=== PATIENT | female | born 1995 | race Two or more races ===

== ENCOUNTER 2024-08-22 16:05 | Outpatient (CLI) | payer MEDICAID, SELFPAY ==
[2024-08-22] VITALS (8 sets, daily range): BP systolic 116; BP diastolic 76; PULSE 69–110; RESP 18; TEMP 37.2; O2SAT 96–100; BMI 29.8
--- NOTE | 2024-08-22 16:23 | XR_ITS ---
Examination: Complete OB ultrasound greater than 14 weeks Date and time of exam: August 22, 2024 1641 hours INDICATIONS: Diagnosis macrosomia Findings: Viable intrauterine single fetus with single amniotic sac presentation cephalic Cardiac motion 127 BPM Placenta anterior grade 2 Umbilical cord insertion seen Amniotic fluid index 7.5 cm spine anterior maternal left Cervix 3.8 cm Nuchal cord Ovaries obscured by bowel gas. Composite estimated gestational age based on BPD, head circumference, abdominal circumference, femur length is 39 weeks 0 days Estimated weight 3934 g. Survey of intracranial anatomy, spinal anatomy, abdominal anatomy, four-chamber heart performed with no abnormalities identified. IMPRESSION: Viable intrauterine gestation cephalic presentation Estimated gestational age 39 weeks 0 days Estimated weight 3934 g Nuchal cord with flow.
== END 2024-08-22 17:58 | disposition home or self-care (01) ==
LOC: S4S1 16:06 → S4SX 17:48
PROVIDERS: Referring Provider Advanced Practice Midwife; Visit Provider Advanced Practice Midwife
DX: Z34.83 Encounter for supervision of other normal pregnancy, third trimester (principal); Z36.89 Encounter for other specified antenatal screening; Z3A.38 38 weeks gestation of pregnancy
CPT/HCPCS: 59025; 76805

== ENCOUNTER 2024-09-02 03:14 | Inpatient (IN) | payer MEDICAID, SELFPAY ==
[2024-09-02] VITALS (116 sets, daily range): BP systolic 73–179; BP diastolic 44–83; PULSE 55–176; RESP 17–98; TEMP 36.5–37.2; O2SAT 85–100; BMI 30.2
[2024-09-02 03:53] LABS: ROM Kit Lot # 57805053; ROM Swab Mixed By: CARMP2; Rupture of Fetal Membranes Negative (Negative); Swb Mxed in Solvent 1 min? Yes
--- NOTE | 2024-09-02 04:58 | XR_ITS ---
Examination: Complete OB ultrasound greater than 14 weeks Date and time of exam: September 02, 2024 at 0526 hrs. Indications: Pelvic contractions beginning 3 days ago Findings: Viable intrauterine single fetus with single amniotic sac presentation cephalic Cardiac motion 116 bpm Placenta fundal anterior grade 3 Umbilical cord insertion seen Amniotic fluid index 7.6 cm Cervix 3.9 cm Ovaries obscured by bowel gas. Composite estimated gestational age based on BPD, head circumference, abdominal circumference, femur length is 36 weeks 6 days Estimated weight 3472.1 g. Survey of intracranial anatomy, spinal anatomy, abdominal anatomy, four-chamber heart performed with no abnormalities identified. Impression: Viable intrauterine gestation cephalic presentation Estimated gestational age 36 weeks 6 days Estimated weight 3472.1 g.
[2024-09-02] MEDS: RINGERS LACTATED 1000 ML 1,000 ML 125 ML IV ×3 (08:00→15:15)
[2024-09-02 08:29] LABS: Basophils % (Auto) 0 % (0-2.5); Eosinophils # (Auto) 0.1 Thou/mm3 (0.0-0.5); Eosinophils % (Auto) 1 % (0-10); Hematocrit 34.6 % (36.0-46.0); Hemoglobin 11.5 g/dL (12.0-16.0); Immature Granulocytes % (Auto) 0 % (0-0); Immature Granulocytes Auto 0.03 Thou/mm3 (0.00-0.00); Lymphocytes # (Auto) 2.2 Thou/mm3 (1.0-4.8); Lymphocytes % (Auto) 26 % (10-50); Mean Corpuscular HGB Conc 33.2 g/dl (31.0-37.0); Mean Corpuscular Hemoglobin 29.5 pg (25.0-35.0); Mean Corpuscular Volume 89 fL (80-100); Monocytes # (Auto) 0.5 Thou/mm3 (0.0-0.8); Monocytes % (Auto) 6 % (0-12); Neutrophils # (Auto) 5.6 Thou/mm3 (1.8-7.7); Neutrophils % (Auto) 67 % (37-80); Nucleated Red Blood Cell % 0 /100 WBC (0); Platelet Count 190 Thou/mm3 (140-440); RDW Standard Deviation 48.6 fL (36.4-46.3); White Blood Count 8.4 Thou/mm3 (3.6-11.0)
[2024-09-02] MEDS: Ampicillin Inj 2,000 MG in SODIUM CHLORIDE 0.9% (P) 100 ML 200 MG IV (08:33)
[2024-09-02] MEDS: MEPERIDINE INJ 50 MG/ML VIAL 75 MG IM (08:36)
[2024-09-02] MEDS: PROMETHAZINE INJ 25 MG/ML VIAL 12.5 MG IM (08:37)
[2024-09-02 09:14] LABS: Syphilis Nonreactive (Nonreactive)
[2024-09-02] MEDS: Ampicillin Inj 1,000 MG in SODIUM CHLORIDE 0.9% (P) 50 ML 50 MG IV ×2 (12:28→16:38)
--- NOTE | 2024-09-02 12:50 | ESHP_ITS ---
Documentation for date of: 09/02/24 OB Labor/Induct. HPI History of Present Illness Chief complaint: labor : 2 Para: 1 Term pregnancies: 1 pregnancies: 0 Living children: 1 History of Abortions: Spontaneous and Elective: 0 History of Vaginal deliveries: 1 History of sections: No History of : No Date of last menstrual period: 11/27/23 HUSAM: 09/02/24 Gestational Age (weeks): 40 Gestational Age (days): 0 Gestational age based on last menstrual period: 40 History of present illness: 29-year-old 2 para 1 admit to labor and delivery with complaints of contractions since 3 in the morning. Patient has been followed at [facility] care. First visit 7 weeks. Last. Was November 27, 2023. This gives due date MarchSeptember 02, 2024. Patient first ultrasound was at 14 weeks in March. She has had several anatomy scans for growth. The baby was growing large for gestational age. Denies social habits. Denies surgery. Denies chronic illness. Patient is A+, antibody screen negative, RPR nonreactive, rubella immune, hepatitis B negative, hepatitis C negative, HIV negative, GC and Chlamydia were negative. GBS positive. Patient had a normal 1 hour. Negative NIPT and carrier screen History of Present Dating criteria: LMP confirmed by 1st trimester US Adequate Care: Yes Ultrasounds: normal 1st trimester US and normal mid trimester US Obstetrical complications: none Medical complications: none Labs Labs: Positive: Group Beta Strep and Negative: Hepatitis B, HIV, Chlamydia and Gonorrhea Review of Systems Review of Systems Systems Reviewed: All systems reviewed, normal except as documented Past Medical History Surgical History SURGICAL: Negative Section Meds Home Medications and Allergies Home Medications ?Medication ?Instructions ?Recorded ?Confirmed ?Type vitamins-iron fumarate 27 1 tab PO QDAY 08/28/19 09/02/24 History mg iron-folic acid 0.8 mg tablet ( Vitamin) ferrous sulfate 325 mg (65 mg 325 mg PO DAILY 05/28/24 09/02/24 History iron) capsule,extended release Allergies Allergy/AdvReac Type Severity Reaction Status Date / Time No Known Allergies Allergy Verified 09/02/24 03:20 OB Exam Physical Exam Vital signs: Temp Pulse Resp BP Pulse Ox 98.6 F 82 18 115/77 98 09/02/24 12:00 09/02/24 12:15 09/02/24 12:00 09/02/24 12:15 09/02/24 06:39 Narrative: Normal heart rate and rhythm. Lungs clear no wheezes. Gravid abdomen. Gynecoid pelvis. Estimated weight 8 pounds 2. Vaginal exam on admission was 60%, 2, -2. Mid. Vertex. Bag water intact. Contractions were about every 3 minutes and moderate Detailed Labor and Delivery Exam Dilation (cm): 2 Effacement (%): 70 Cervix position: mid station: -2 Consistency: soft Presentation: Vertex Cervical ripeness score: 7 Membranes: intact Baseline heart rate: 115 monitor accelerations: 15x15 monitor decelerations: None control and recovery combat rescue variability: Moderate (11-25) Contraction frequency (min): 3 Contraction duration (sec): 15 Tachysystole: No Contraction intensity: Moderate OB Results Labs 09/02/24 08:10 Labs: Short CBC 09/02/24 Range/Units 08:10 WBC 8.4 (3.6-11.0) Thou/mm3 Hgb 11.5 L (12.0-16.0) g/dL Hct 34.6 L (36.0-46.0) % Plt Count 190 (140-440) Thou/mm3 Impressions Impression: labor OB Assessment & Plan Assessment and Plan (1) Normal labor and delivery: Status: Acute Additional Plan Induction method: none Plan: anticipate NVD, GBS prophylaxis tx and consult MD lobo
[2024-09-02] MEDS: MINERAL OIL 30 ML UDC TOP (18:40)
[2024-09-02] MEDS: OXYTOCIN INJ 10 UNIT/ML VIAL IM (18:50)
[2024-09-02] MEDS: OXYTOCIN in NS 20 units 20 UNIT/1,000 ML BAG 125 UNIT IV (18:57)
[2024-09-02] MEDS: MISOPROSTOL 200 mCg TABLET 800 MCG PR (19:01)
[2024-09-02] MEDS: TRANEXAMIC ACID 1,000 MG IVPB 1,000 MG/100 ML BAG 200 MG IV ×2 (19:17→19:49)
--- NOTE | 2024-09-02 19:48 | PD.LDDELS ---
Data (Mojica) Data Hx Section: No : 2 Para: 1 Term: 1 : 0 : 0 Delivery Data (Mojica) Labor Data Stimulated/Augmented: Yes Induction: No Method: AROM ROM Date: 09/02/24 ROM Time: 11:59 Rupture Type: AROM Amniotic Fluid: Clear Delivery Data EDC: 09/02/24 EDC calculated by:: LMP/early US confirmation Labor Onset Stage 1 Date: 09/01/24 Labor Onset Stage 1 Time: 13:45 Labor Onset Stage 2 Date: 09/02/24 Labor Onset Stage 2 Time: 18:31 Delivery Date: 09/02/24 Delivery Time: 18:48 Gestational age (weeks): 40 Gestational age (days): 0 Placenta Delivery Date: 09/02/24 Placenta Delivery Time: 18:53 Delivered by: Maritza Arambula Delivery nurse: Jenn Max Other staff at delivery: 2nd Nurse Other staff at delivery: 2nd Nurse Other staff at delivery: Soniya Mcintyre Other staff at delivery: Barbie Schultz Delivery Method Delivery: Vaginal Delivery Type: Spontaneous Presentation: Compound Position: OA Anesthesia Type Primary Anesthesia: Epidural Delivery Room Medications Intrapartum Medications: Antibiotics and Narcotics Other Intrapartum Medications: No Post Delivery Medications: Antibiotics, Tocolytics and Cytotec Post Delivery Medications N/A: No Placenta Placenta Delivery: Spontaneous (placenta inspected, intact) Placenta Cultures Obtained: No Placenta Sent for Examination: No Cord Sample: Cord Blood Obtained Episiotomy Episiotomy: None Lacerations #1: Perineal: 1st degree (small 1st, bilateral laceration) Perineal repair Sutures used for repair: 3.0 Vicryl EBL Estimated blood loss (ml): 400 Umbilical Cord Umbilical Vessels: 3 Nuchal Cord: None Body Cord: None Additional Procedures posterior arm, compound presentation Data (Mojica) [place] Data Infant Gender: Female Weight Grams: 3390 1 Minute Total: 8 5 Minute Total: 9
[2024-09-02] MEDS: IBUPROFEN TAB 400 MG TABLET 800 MG PO (20:14)
[2024-09-03] VITALS (10 sets, daily range): BP systolic 92–111; BP diastolic 62–73; PULSE 73–97; RESP 16–18; TEMP 36.5–36.9; O2SAT 97–100
[2024-09-03 05:38] LABS: Basophils % (Auto) 0 % (0-2.5); Eosinophils # (Auto) 0.1 Thou/mm3 (0.0-0.5); Eosinophils % (Auto) 1 % (0-10); Hematocrit 25.5 % (36.0-46.0); Immature Granulocytes % (Auto) 1 % (0-0); Immature Granulocytes Auto 0.06 Thou/mm3 (0.00-0.00); Lymphocytes # (Auto) 1.8 Thou/mm3 (1.0-4.8); Lymphocytes % (Auto) 16 % (10-50); Mean Corpuscular HGB Conc 32.9 g/dl (31.0-37.0); Mean Corpuscular Hemoglobin 29.6 pg (25.0-35.0); Mean Corpuscular Volume 90 fL (80-100); Monocytes # (Auto) 0.7 Thou/mm3 (0.0-0.8); Monocytes % (Auto) 7 % (0-12); Neutrophils # (Auto) 8.6 Thou/mm3 (1.8-7.7); Neutrophils % (Auto) 77 % (37-80); Nucleated Red Blood Cell % 0 /100 WBC (0); Platelet Count 152 Thou/mm3 (140-440); RDW Standard Deviation 50.4 fL (36.4-46.3); Red Blood Count 2.84 Miln/mm3 (4.00-5.20); White Blood Count 11.2 Thou/mm3 (3.6-11.0)
[2024-09-03 05:40] LABS: Hemoglobin 8.4 g/dL (12.0-16.0)
--- NOTE | 2024-09-03 07:28 | PD.LDPPPRG ---
Subjective Subjective Interval history: No complaints of pain. No dizziness. Bonding and breast-feeding Exam Vital Signs Temp Pulse Resp BP Pulse Ox O2 Del Method O2 Flow Rate 98.2 F 97 16 92/63 100 Room Air 10 09/03/24 05:09 09/03/24 06:37 09/03/24 05:09 09/03/24 06:37 09/03/24 06:37 09/03/24 06:37 09/02/24 19:48 Narrative Exam Vital signs stable afebrile. Breasts are soft. Fundus firm below the umbilicus. Perineum intact no swelling. 2+ DTRs. Negative Homans' sign. Uterus well involuted. Objective Labs 09/03/24 04:40 Labs: Laboratory Results - last 24 hr 09/02/24 09/03/24 08:10 04:40 WBC 8.4 11.2 H RBC 3.90 L 2.84 L Hgb 11.5 L 8.4 L D Hct 34.6 L 25.5 L MCV 89 90 MCH 29.5 29.6 MCHC 33.2 32.9 RDW Std Deviation 48.6 H 50.4 H Plt Count 190 152 D Neut % (Auto) 67 77 Lymph % (Auto) 26 16 [place] % (Auto) 6 7 Eos % (Auto) 1 1 Baso % (Auto) 0 0 Neut # (Auto) 5.6 8.6 H Lymph # (Auto) 2.2 1.8 [place] # (Auto) 0.5 0.7 Eos # (Auto) 0.1 0.1 Baso # (Auto) 0.0 0.0 Immature Gran # (Auto) 0.03 H 0.06 H Absolute Nucleated RBC 0.00 0.00 Immature Gran % 0 1 H Nucleated RBC % 0 0 Syphilis Serology Nonreactive Blood Type A Positive Antibody Screen NEGATIVE Blood Bank Wristband ID Yes Assessment & Plan Problem List (1) Normal labor and delivery: Status: Acute Assessment Comment Assessment comment: 24 hr pp Plan Comment Plan Comment: Discharge home with baby. Continue vitamins and iron. Tylenol ibuprofen for pain. Discussed comfort measures for laceration. No sex. Discussed danger signs and symptoms. Discussed ER precautions and parameters. And discussed signs and symptoms of infection. Return in 3 weeks visit Time Spent With Patient Time: Total time spent is greater than 50% in coordination of care (as documented) at patient's floor/unit and/or counseling patient:
--- NOTE | 2024-09-03 07:30 | ESDS_ITS ---
DS: Providers Provider Date of admission: 09/02/24 15:25 Primary care physician: Scot Tyson MD Admitting Provider: Delroy Stovall MD Attending Provider on Admission: Maritza Arambula CNM Consults: 09/02/24 20:19 Referral Routine Comment: Attending Provider on DC: Maritza Arambula CNM Discharging Provider: Maritza Arambula CNM DS: Diagnosis Problem List Completed Was Problem List Reviewed/Reconciled?: Yes Summary/Hosp Course Brief History: 29-year-old 2 para 1 admit to labor and delivery with complaints of contractions since 3 in the morning. Patient has been followed at [facility] care. First visit 7 weeks. Last. Was November 27, 2023. This gives due date MarchSeptember 02, 2024. Patient first ultrasound was at 14 weeks in March. She has had several anatomy scans for growth. The baby was growing large for gestational age. Denies social habits. Denies surgery. Denies chronic illness. Patient is A+, antibody screen negative, RPR nonreactive, rubella immune, hepatitis B negative, hepatitis C negative, HIV negative, GC and Chlamydia were negative. GBS positive. Patient had a normal 1 hour. Negative NIPT and carrier screen Peripartum Data Delivery Method: Normal Vaginal Delivery Episiotomy Description: None Laceration Description: yes (1st degree perineal and vaginal laceration) Time Spent with Patient Time attestation: Total time spent providing and/or coordinating discharge services: Exam Vital Signs Temp Pulse Resp BP Pulse Ox O2 Del Method O2 Flow Rate 98.2 F 97 16 92/63 100 Room Air 10 09/03/24 05:09 09/03/24 06:37 09/03/24 05:09 09/03/24 06:37 09/03/24 06:37 09/03/24 06:37 09/02/24 19:48 Discharge Plan Plan Patient Disposition: HOME (Self Care) Patient condition on transfer: Stable Prescriptions/Referrals Prescriptions/Med Rec: No Action Vitamin 27 mg iron- 0.8 mg Tablet 1 tab PO QDAY ferrous sulfate 325 mg (65 mg iron) Capsule, Extended Release 325 mg PO DAILY albuterol sulfate 90 mcg/actuation HFA aerosol inhaler 2 inh inhalation Q4H PRN (Reason: shortness of breath or wheezing) Qty: 8.5 0RF Referrals: Scot Tyson MD [Primary Care Provider] - Patient/Caregiver Discharge Instructions Meds to Beds: No Discharge Activity: resume usual activities Education Materials: Kick Counts, Antepartum Discharge Print Language: Egyptian Activity Restrictions/Additional Instructions: Discharge home with baby. Continue vitamins and iron. Patient can take Tylenol ibuprofen for pain. Discussed danger signs and symptoms. Discussed ER precautions and parameters. Discussed signs and symptoms of infection. Increase fluids and rest. Discussed comfort measures for first- degree perineal tear and return in 3 weeks visit Stand Alone Forms: Mckenna Award Info., Patient Portal Info Letter, Work/Release Restrictions Discharge Order Discharge Orders: Discharge (Routine); Ordered 09/03/24 Ordered By: Maritza Arambula Planned Discharge Date 09/03/24
--- NOTE | 2024-09-03 07:50 | PC.LAC ---
Mom states that has been going well. She does feel tenderness in breasts, she feels is due to blebs. Explained using warm, wet compresses in order to soften that tissue so that milk can pass through them. Also gave patient some lanolin per her request. She stated that with her first baby this really helped. She stated that she did breast feed for 6 months with her previous child. She feels feedings are going well.
[2024-09-03] MEDS: DOCUSATE SOD 100 MG CAPSULE PO ×2 (08:15→20:17)
--- NOTE | 2024-09-03 18:07 | PC.NURSE ---
174 CELINE REY CALLED AND INFORMED THAT PATIENT EXPELLED A LARGE BLOOD CLOT VAGINALLY. PATIENT HAS BEEN UP AND ABOUT ALL DAY WITH OUT INCIDENT. THIS AFTERNOON WAS GETTING READY FOR DISCHARGE AND FELT SOMETHING SOMETHING DROP. WENT TO BATHROOM AND LARGE BLOOD CLOT FELL INTO TOILET. WAS CHECKED BY LABOR DELIVERY NURSE, WHO STATED FUNDUS WAS FIRM AND NO OTHER COLTS EXPELLED AND NO VAGINAL DISCHARGE. PATIENT DENIES DIZZINESS OR LIGHTHEADEDNESS. CELINE ORDERED TO CANCEL DISCHARGE AND STAT CBC. PATIENT INFORMED OF CARE PROVIDERS DECISION TO CANCEL DISCHARGED. REASSURED IT IS JUST A PRECAUTION.
[2024-09-03 19:08] LABS: Basophils % (Auto) 0 % (0-2.5); Eosinophils # (Auto) 0.1 Thou/mm3 (0.0-0.5); Eosinophils % (Auto) 1 % (0-10); Hematocrit 24.6 % (36.0-46.0); Immature Granulocytes % (Auto) 1 % (0-0); Immature Granulocytes Auto 0.05 Thou/mm3 (0.00-0.00); Lymphocytes % (Auto) 23 % (10-50); Mean Corpuscular HGB Conc 32.9 g/dl (31.0-37.0); Mean Corpuscular Hemoglobin 29.6 pg (25.0-35.0); Mean Corpuscular Volume 90 fL (80-100); Monocytes # (Auto) 0.6 Thou/mm3 (0.0-0.8); Monocytes % (Auto) 6 % (0-12); Neutrophils # (Auto) 6.1 Thou/mm3 (1.8-7.7); Neutrophils % (Auto) 69 % (37-80); Nucleated Red Blood Cell % 0 /100 WBC (0); Platelet Count 152 Thou/mm3 (140-440); Red Blood Count 2.74 Miln/mm3 (4.00-5.20); White Blood Count 8.9 Thou/mm3 (3.6-11.0)
[2024-09-03 19:09] LABS: Hemoglobin 8.1 g/dL (12.0-16.0)
--- NOTE | 2024-09-03 19:24 | PC.NURSE ---
Mike aware of hemoglobin of 8.1.
[2024-09-03] MEDS: METHYLERGONOVINE 0.2 MG TABLET PO (20:17)
[2024-09-03] MEDS: IBUPROFEN TAB 400 MG TABLET 800 MG PO (22:07)
[2024-09-04 05:11] VITALS: BP 102/68; PULSE 84; RESP 18; TEMP 36.8; O2SAT 97
[2024-09-04 05:14] VITALS: BP 102/68; PULSE 84
[2024-09-04] MEDS: METHYLERGONOVINE 0.2 MG TABLET PO (05:14)
[2024-09-04] MEDS: DOCUSATE SOD 100 MG CAPSULE PO (08:46)
--- NOTE | 2024-09-04 08:58 | PD.LDPPPRG ---
Subjective Subjective Interval history: No complaints of pain. No dizziness. Bonding breast-feeding Exam Vital Signs Temp Pulse Resp BP Pulse Ox O2 Del Method O2 Flow Rate 98.2 F 84 18 102/68 97 Room Air 10 09/04/24 05:11 09/04/24 05:14 09/04/24 05:11 09/04/24 05:14 09/04/24 05:11 09/04/24 05:11 09/02/24 19:48 Narrative Exam Vital signs stable afebrile. Breasts are soft. Fundus firm below the umbilicus. Perineum is has no swelling. Soft. First-degree perineal laceration intact. Small lochia. Negative Homans' sign. Objective Labs 09/03/24 18:48 Labs: Laboratory Results - last 24 hr 09/03/24 18:48 WBC 8.9 RBC 2.74 L Hgb 8.1 L Hct 24.6 L MCV 90 MCH 29.6 MCHC 32.9 RDW Std Deviation 51.0 H Plt Count 152 Neut % (Auto) 69 Lymph % (Auto) 23 [place] % (Auto) 6 Eos % (Auto) 1 Baso % (Auto) 0 Neut # (Auto) 6.1 Lymph # (Auto) 2.0 [place] # (Auto) 0.6 Eos # (Auto) 0.1 Baso # (Auto) 0.0 Immature Gran # (Auto) 0.05 H Absolute Nucleated RBC 0.00 Immature Gran % 1 H Nucleated RBC % 0 Assessment & Plan Problem List (1) Normal labor and delivery: Status: Acute Assessment Comment Assessment comment: 24 hr pp Plan Comment Plan Comment: Discharge home with baby. Continue vitamins and iron. Tylenol ibuprofen for pain. Discussed danger signs and symptoms and ER precautions. Parameters given. Discussed signs and symptoms of infection increase rest and fluids. Return in 3 weeks visit Time Spent With Patient Time: Total time spent is greater than 50% in coordination of care (as documented) at patient's floor/unit and/or counseling patient:
[2024-09-04 09:00] VITALS: BP 105/71; PULSE 88; RESP 17; TEMP 36.8; O2SAT 97
--- NOTE | 2024-09-04 09:00 | ESDS_ITS ---
DS: Providers Provider Date of admission: 09/02/24 15:25 Primary care physician: Scot Tyson MD Admitting Provider: Delroy Stovall MD Attending Provider on Admission: Maritza Arambula CNM Consults: 09/02/24 20:19 Referral Routine Comment: Attending Provider on DC: Maritza Arambula CNM Discharging Provider: Maritza Arambula CNM DS: Diagnosis Problem List Completed Was Problem List Reviewed/Reconciled?: Yes Summary/Hosp Course Brief History: 29-year-old 2 para 1 admit to labor and delivery with complaints of contractions since 3 in the morning. Patient has been followed at [facility] care. First visit 7 weeks. Last. Was November 27, 2023. This gives due date MarchSeptember 02, 2024. Patient first ultrasound was at 14 weeks in March. She has had several anatomy scans for growth. The baby was growing large for gestational age. Denies social habits. Denies surgery. Denies chronic illness. Patient is A+, antibody screen negative, RPR nonreactive, rubella immune, hepatitis B negative, hepatitis C negative, HIV negative, GC and Chlamydia were negative. GBS positive. Patient had a normal 1 hour. Negative NIPT and carrier screen Peripartum Data Delivery Method: Normal Vaginal Delivery Episiotomy Description: None Laceration Description: yes (1st perineal and vaginal) Time Spent with Patient Time attestation: Total time spent providing and/or coordinating discharge services: Exam Vital Signs Temp Pulse Resp BP Pulse Ox O2 Del Method O2 Flow Rate 98.2 F 84 18 102/68 97 Room Air 10 09/04/24 05:11 09/04/24 05:14 09/04/24 05:11 09/04/24 05:14 09/04/24 05:11 09/04/24 05:11 09/02/24 19:48 Discharge Plan Plan Patient Disposition: HOME (Self Care) Patient condition on transfer: Stable Prescriptions/Referrals Prescriptions/Med Rec: No Action Vitamin 27 mg iron- 0.8 mg Tablet 1 tab PO QDAY ferrous sulfate 325 mg (65 mg iron) Capsule, Extended Release 325 mg PO DAILY albuterol sulfate 90 mcg/actuation HFA aerosol inhaler 2 inh inhalation Q4H PRN (Reason: shortness of breath or wheezing) Qty: 8.5 0RF Referrals: Scot Tyson MD [Primary Care Provider] - Patient/Caregiver Discharge Instructions Meds to Beds: No Discharge Activity: resume usual activities Education Materials: After a Vaginal , Breast Care After , Incision Care After Vaginal , Nutrition While , : Caring for Yourself Print Language: Greenlandic Activity Restrictions/Additional Instructions: Discharge home with baby. Continue vitamins and iron. Patient can take Tylenol ibuprofen for pain. Discussed danger signs and symptoms. Discussed ER precautions and parameters. Discussed signs and symptoms of infection. Increase fluids and rest. Discussed comfort measures for first- degree perineal tear and return in 3 weeks visit Stand Alone Forms: Mckenna Award Info., Patient Portal Info Letter, Work/Release Restrictions Discharge Order Discharge Orders: Discharge (Routine); Ordered 09/04/24 Ordered By: Maritza Arambula Planned Discharge Date 09/04/24
== END 2024-09-04 12:09 | disposition home or self-care (01) | DRG 560 ==
LOC: S4SX 19:02 → S4NX 09-03 06:22
PROVIDERS: Admitting Provider Obstetrics & Gynecology; PCP Family Medicine; Visit Provider Advanced Practice Midwife
DX: O36.63X0 Maternal care for excessive fetal growth, third trimester, not applicable or unspecified (principal); O99.824 Streptococcus B carrier state complicating childbirth; Z37.0 Single live birth; Z3A.40 40 weeks gestation of pregnancy; O70.0 First degree perineal laceration during delivery; O32.6XX0 Maternal care for compound presentation, not applicable or unspecified
CPT/HCPCS: 36415; 59025; 76805; 84112; 85025; 86780; 86850; 86900; 86901; J0290; J2175; J2371; J2550; J2590; J2795; J3010; J3490; J7050; J7120; S0191; A9270